=== PATIENT | female | born 1940 ===

== ENCOUNTER 2018-06-18 17:35 | Emergency (ER) | payer MEDICARE, OTHER ==
[~2018-06-18] VITALS: Ht 160 cm; Wt 74.8 kg
[~2018-06-18 17:35] MED LIST: ATOR10; FLUO10; Lisinopril2.5 MG; Norco 5-325 Ta1 EACH PO; Zofran Odt4 MG SL
[2018-06-18 19:07] LABS: BASOPHILS ABSOLUTE AUTO 0.04 K/mm3 (0.00-0.23); BASOPHILS PERCENT AUTO 1 % (0-2); EOSINOPHILS ABSOLUTE AUTO 0.22 K/mm3 (0.00-0.68); EOSINOPHILS PERCENT AUTO 3 % (0-6); Hematocrit 36.6 % (33.0-51.0); Hemoglobin 12.1 g/dL (11.5-16.0); IMMATURE GRAN ABSOLUTE AUTO 0.02 K/mm3 (0.00-0.10); IMMATURE GRAN PERCENT AUTO 0 % (0-1); LYMPHOCYTES PERCENT AUTO 33 % (21-46); MONOCYTES ABSOLUTE AUTO 0.78 K/mm3 (0.16-1.47); MONOCYTES PERCENT AUTO 9 % (4-13); Mean Corpuscular HGB 31.2 pg (26.0-34.0); Mean Corpuscular HGB Conc 33.1 g/dL (31.5-36.5); Mean Corpuscular Volume 94 fL (80-100); Mean Platelet Volume 9.9 fL (9.1-12.4); NEUTROPHILS ABSOLUTE AUTO 4.53 K/mm3 (1.96-9.15); NEUTROPHILS PERCENT AUTO 54 % (41-73); Platelet Count 252 K/mm3 (150-400); RDW Coefficient Variation 13.1 % (11.7-14.2); RDW Standard Deviation 45.1 fL (35.1-46.3); Red Blood Cell Count 3.88 M/mm3 (3.80-5.20); White Blood Cell Count 8.39 K/mm3 (4.00-11.30)
[2018-06-18 19:35] LABS: Alanine Aminotransfer (ALT/SGP 55 U/L (12-78); Albumin, Blood 3.9 g/dL (3.4-5.0); Albumin/Globulin Ratio 1.2 (0.8-1.8); Alk Phos 86 U/L (50-136); Anion Gap 7 mmol/L (6-16); Aspartate Aminotrans (AST/SGOT 44 U/L (12-37); Bilirubin, Total 0.9 mg/dL (0.1-1.0); Blood Urea Nitrogen 21 mg/dL (8-24); Bun/Creatinine Ratio 27.5 (12.0-20.0); CO2, Blood 27 mmol/L (21-32); Calcium, Blood 9.1 mg/dL (8.5-10.1); Chloride, Blood 102 mmol/L (98-108); Creatinine, Blood 0.77 mg/dL (0.40-1.00); Globulin, Blood 3.3 g/dL (2.2-4.0); Glomerular Filtration Rate >60 (60-); Glucose, Blood 114 mg/dL (70-99); Potassium, Blood 3.3 mmol/L (3.5-5.5); Sodium, Blood 136 mmol/L (136-145); Total Protein, Blood 7.2 g/dL (6.4-8.2); Troponin I <0.015 ng/mL (0.000-0.040)
== END 2018-06-18 23:07 | disposition home or self-care (01) ==
LOC: ER 17:35
PROVIDERS: Physician Assistant
DX: R06.02 Shortness of breath (principal); F32.9 Major depressive disorder, single episode, unspecified; I10 Essential (primary) hypertension; E78.00 Pure hypercholesterolemia, unspecified; Z87.891 Personal history of nicotine dependence; Z79.899 Other long term (current) drug therapy
CPT/HCPCS: 36415; 71046; 80053; 83880; 84484; 85025; 93005; 93010; 99285-25

== ENCOUNTER 2018-11-25 07:49 | Day surgery (SDC) | payer MEDICARE, OTHER ==
[~2018-11-25] VITALS: Ht 160 cm; Wt 75.0 kg
[~2018-11-25 07:49] MED LIST changes: +ASPI81CH PO; +ATOR40TA PO; +CENTRUM SILVER1 EAC2 PO; +CO Q-10100 MG PO; +FISH OIL; +METO50ER PO; +NAPR220 PO; +Oyster Shell C500 MG PO; +Prozac40 MG PO; +VITAMIN D35000 UNI1 PO; +Vistaril25 MG PO; +Vitamin B Comple1 EA PO; +ZESTORETIC 20-121 EA PO; +[UNRECOGNIZED DRUG - OTHER] PO
--- NOTE | 2018-11-25 11:08 | NUR ---
RIGHT FEMORAL SHEATH PULL IN PROGRESS. PT TOLERATING WELL. PT MEDICATED WITH FENTANYL 50 MCG PRIOR TO SHEATH REMOVAL. VSS, MANUAL PRESSURE BEING HELD BY JOHAN LIZARRAGA (RT) (CT). WILL CONTINUE TO MONITOR.
--- NOTE | 2018-11-25 15:31 | NUR ---
PT UP TO RESTROOM AND DRESSED WITH NO COMPLICATIONS. NO OOZING, BLEEDING, SWELLING OR PAIN AT RADIAL AND GROIN SITE. PTS DAUGHTERS AT BEDSIDE. PT AMBULATES AROUND DEPARTMENT WITH NO BLEEDING OR OOZING FROM GROIN SITE. DC, SITE CARE INSTRUCTIONS REVIEWED WITH PT AND DAUGHTERS WHO STATE UNDERSTANDING. PT PLACED IN ARM SLING. IV DCD WITH CATH INTACT. PULSES PRESENT. PT DCD IN FRONT DOOR IN WC BY RN. PT DENIES QUESTIONS OR CONCERNS.
== END 2018-11-25 15:35 | disposition home or self-care (01) ==
LOC: MHTC 07:49
DX: R07.89 Other chest pain (principal); R94.30 Abnormal result of cardiovascular function study, unspecified; I77.1 Stricture of artery; I10 Essential (primary) hypertension; E78.5 Hyperlipidemia, unspecified; F32.9 Major depressive disorder, single episode, unspecified; Z87.891 Personal history of nicotine dependence; Z79.899 Other long term (current) drug therapy; Z79.82 Long term (current) use of aspirin; R94.39 Abnormal result of other cardiovascular function study
CPT/HCPCS: 75605; 75710; 76937; 93005; 93010; 93454; 99152; 99153; C1769; C1894; J1644; J2250; J3010; J7030; Q9967

== ENCOUNTER 2018-11-30 12:38 | Day surgery (SDC) | payer MEDICARE, OTHER | END 2018-11-30 22:39 | disposition home or self-care (01) | LOC: CT 12:38 | DX: Q25.1 Coarctation of aorta (principal); I77.810 Thoracic aortic ectasia | CPT/HCPCS: 71275; Q9967 ==

== ENCOUNTER 2018-12-13 07:22 | Day surgery (SDC) | payer MEDICARE, OTHER ==
--- NOTE | 2018-12-13 08:28 | NUR ---
PT TO CT VIA GURNEY. TOLERATED PROCEDURE WELL. GIVEN NTG S.L. X 1-SEE CT RECORD FOR FREQUENT VS.
--- NOTE | 2018-12-13 08:36 | NUR ---
DISCHARGE INSTRUCTIONS REVIEWED WITH PT. PT VERBALIZES UNDERSTANDING. DISCHARGED TO HOME-AMBULATORY. PT HAD BELONGINGS AND INSTRUCTIONS ON HAND.
== END 2018-12-13 08:38 | disposition home or self-care (01) ==
LOC: ORD 07:22 → CT 07:22 → ORD 07:30 → CT 08:00 → ORD 08:38
DX: R07.89 Other chest pain (principal); R06.02 Shortness of breath; I10 Essential (primary) hypertension; E78.5 Hyperlipidemia, unspecified; Z87.891 Personal history of nicotine dependence; Z79.82 Long term (current) use of aspirin; Z79.899 Other long term (current) drug therapy
CPT/HCPCS: 75574; Q9967

== ENCOUNTER 2020-03-30 05:48 | Emergency (ER) | payer MEDICARE, OTHER ==
[~2020-03-30] VITALS: Ht 162.6 cm; Wt 73.5 kg
[~2020-03-30 05:48] MED LIST changes: -CO Q-10100 MG PO; +Co Q-10300 MG PO
[2020-03-30] MEDS ORDERED: LISI20 PO (05:58)
[2020-03-30] MEDS ORDERED: PROZAC40 MG PO (05:58)
[2020-03-30] MEDS ORDERED: OCUVITE BLUE L1 EACH PO (06:00)
[2020-03-30] MEDS ORDERED: VITAMIN D5000 UNIT PO (06:02)
[2020-03-30] MEDS ORDERED: CARV3.125 PO (06:03)
[2020-03-30 06:10] LABS: BASOPHILS ABSOLUTE AUTO 0.03 K/mm3 (0.00-0.23); BASOPHILS PERCENT AUTO 0 % (0-2); EOSINOPHILS ABSOLUTE AUTO 0.09 K/mm3 (0.00-0.68); EOSINOPHILS PERCENT AUTO 1 % (0-6); Hematocrit 35.4 % (33.0-51.0); Hemoglobin 11.8 g/dL (11.5-16.0); IMMATURE GRAN ABSOLUTE AUTO 0.03 K/mm3 (0.00-0.10); IMMATURE GRAN PERCENT AUTO 0 % (0-1); LYMPHOCYTES ABSOLUTE AUTO 1.74 K/mm3 (0.84-5.20); LYMPHOCYTES PERCENT AUTO 15 % (21-46); MONOCYTES ABSOLUTE AUTO 0.92 K/mm3 (0.16-1.47); MONOCYTES PERCENT AUTO 8 % (4-13); Mean Corpuscular HGB 30.7 pg (26.0-34.0); Mean Corpuscular HGB Conc 33.3 g/dL (31.5-36.5); Mean Corpuscular Volume 92 fL (80-100); Mean Platelet Volume 10.2 fL (9.1-12.4); NEUTROPHILS PERCENT AUTO 75 % (41-73); Platelet Count 210 K/mm3 (150-400); RDW Coefficient Variation 12.9 % (11.7-14.2); RDW Standard Deviation 43.3 fL (35.1-46.3); Red Blood Cell Count 3.84 M/mm3 (3.80-5.20); White Blood Cell Count 11.41 K/mm3 (4.00-11.30)
[2020-03-30 06:33] LABS: Alanine Aminotransfer (ALT/SGP 68 U/L (12-78); Albumin, Blood 3.4 g/dL (3.4-5.0); Albumin/Globulin Ratio 0.9 (0.8-1.8); Alk Phos 90 U/L (50-136); Anion Gap 6 mmol/L (6-16); Aspartate Aminotrans (AST/SGOT 66 U/L (12-37); Bilirubin, Total 1.1 mg/dL (0.1-1.0); Blood Urea Nitrogen 20 mg/dL (8-24); Bun/Creatinine Ratio 30.4 (12.0-20.0); CO2, Blood 30 mmol/L (21-32); Chloride, Blood 104 mmol/L (98-108); Creatinine, Blood 0.66 mg/dL (0.40-1.00); Globulin, Blood 3.7 g/dL (2.2-4.0); Glomerular Filtration Rate >60 (60-); Glucose, Blood 124 mg/dL (70-99); Potassium, Blood 3.5 mmol/L (3.5-5.5); Sodium, Blood 140 mmol/L (136-145); Total Protein, Blood 7.1 g/dL (6.4-8.2); Troponin I <0.015 ng/mL (0.000-0.040)
== END 2020-03-30 10:28 | disposition home or self-care (01) ==
LOC: ER 05:48
PROVIDERS: Emergency Medicine
DX: R07.9 Chest pain, unspecified (principal); R06.02 Shortness of breath; E78.00 Pure hypercholesterolemia, unspecified; I10 Essential (primary) hypertension; Z79.82 Long term (current) use of aspirin; Z79.899 Other long term (current) drug therapy; Z87.891 Personal history of nicotine dependence
CPT/HCPCS: 36415; 71046; 80053; 83690; 84484; 85025; 93005; 93010; 99285-25

== ENCOUNTER 2021-09-11 09:48 | Day surgery (SDC) | payer MEDICARE, OTHER ==
[~2021-09-11] VITALS: Ht 160 cm; Wt 70.8 kg
[~2021-09-11 09:48] MED LIST changes: +CARV3.125 PO; +LISI20 PO; +OCUVITE BLUE L1 EACH PO; +PROZAC40 MG PO; +VITAMIN D5000 UNIT PO
[2021-09-11] MEDS ORDERED: CARV3.125 (10:21)
--- NOTE | 2021-09-11 10:30 | NUR ---
09/11/21 1030 Issac Adams 1005, RUBEN 1006, L EYE BY [facility].NYL.
== END 2021-09-11 11:47 | disposition home or self-care (01) ==
LOC: ORSCSDS 09:48
PROVIDERS: Ophthalmology
PROC: 08RK3JZ Replacement of Left Lens with Synthetic Substitute, Percutaneous Approach (ICD-10-PCS; principal; 2021-09-11 11:00)
DX: H25.13 Age-related nuclear cataract, bilateral (principal); I10 Essential (primary) hypertension; K21.9 Gastro-esophageal reflux disease without esophagitis; Z79.82 Long term (current) use of aspirin; Z79.899 Other long term (current) drug therapy
CPT/HCPCS: J2001; J2250; J3010; J3301; J7040; V2632

== ENCOUNTER 2021-09-17 07:26 | Emergency (ER) | payer MEDICARE, OTHER ==
[~2021-09-17] VITALS: Ht 160 cm; Wt 69.8 kg
[2021-09-17 07:42] LABS: BASOPHILS ABSOLUTE AUTO 0.04 K/mm3 (0.00-0.23); BASOPHILS PERCENT AUTO 1 % (0-2); EOSINOPHILS ABSOLUTE AUTO 0.19 K/mm3 (0.00-0.68); EOSINOPHILS PERCENT AUTO 2 % (0-6); Hematocrit 34.7 % (33.0-51.0); Hemoglobin 11.7 g/dL (11.5-16.0); IMMATURE GRAN ABSOLUTE AUTO 0.01 K/mm3 (0.00-0.10); IMMATURE GRAN PERCENT AUTO 0 % (0-1); LYMPHOCYTES ABSOLUTE AUTO 3.18 K/mm3 (0.84-5.20); LYMPHOCYTES PERCENT AUTO 39 % (21-46); MONOCYTES ABSOLUTE AUTO 0.84 K/mm3 (0.16-1.47); MONOCYTES PERCENT AUTO 10 % (4-13); Mean Corpuscular HGB 30.8 pg (26.0-34.0); Mean Corpuscular HGB Conc 33.7 g/dL (31.5-36.5); Mean Corpuscular Volume 91 fL (80-100); NEUTROPHILS PERCENT AUTO 48 % (41-73); Platelet Count 171 K/mm3 (150-400); RDW Coefficient Variation 12.6 % (11.7-14.2); RDW Standard Deviation 42.3 fL (35.1-46.3); White Blood Cell Count 8.16 K/mm3 (4.00-11.30)
[2021-09-17 07:59] LABS: Albumin, Blood 3.4 g/dL (3.4-5.0); Bilirubin, Total 1.2 mg/dL (0.1-1.0); Bun/Creatinine Ratio 28.8 (12.0-20.0); Calcium, Blood 8.9 mg/dL (8.5-10.1); Creatinine, Blood 0.56 mg/dL (0.40-1.00); Globulin, Blood 3.5 g/dL (2.2-4.0); Magnesium, Blood 1.9 mg/dL (1.6-2.4); Potassium, Blood 3.7 mmol/L (3.5-5.5); Total Protein, Blood 6.9 g/dL (6.4-8.2)
[2021-09-17] MEDS ORDERED: Calcium Carbon500 MG PO (08:10)
[2021-09-17] MEDS ORDERED: DONEPEZIL HCL5 M2 PO (08:13)
[2021-09-17] MEDS ORDERED: LISI20 PO (08:14)
[2021-09-17 11:09] LABS: Influenza A, PCR NEGATIVE (NEGATIVE); Influenza B, PCR NEGATIVE (NEGATIVE); Resp Syncytial Virus, PCR NEGATIVE (NEGATIVE); SARS-Cov-2 (COVID-19) PCR, MMC NEGATIVE (NEGATIVE)
== END 2021-09-17 11:20 | disposition short-term general hospital (02) ==
LOC: ER 07:26
PROVIDERS: Student in an Organized Health Care Education/Training Program
DX: I71.01 Dissection of thoracic aorta (principal); I71.02 Dissection of abdominal aorta; Z79.899 Other long term (current) drug therapy; Z79.82 Long term (current) use of aspirin; Z91.040 Latex allergy status; I10 Essential (primary) hypertension
CPT/HCPCS: 0241U; 36415; 71046; 71275; 74175; 80053; 82248; 83605; 83690; 83735; 84484; 85025; 93005; 93010; 96365; 96368; 96375; 96376; 99285-25; A9270; J1170; J1885; J2550; J7050; Q9967